=== PATIENT | male | born 2000 | race Hispanic/Latino ===

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

== ENCOUNTER 2023-04-11 22:30 | Emergency (ER) | payer MEDICAID ==
[~2023-04-11] VITALS: Ht 175.3 cm; Wt 66.0 kg
[~2023-04-11 22:30] MED LIST changes: +PHENERGAN25 MG/TAB PO
[2023-04-11 22:37] VITALS: BP 122/71
[2023-04-11 23:00] VITALS: BP 136/90
[2023-04-11 23:35] LABS: BASO% 0.3 % (0-3); EOS% 0.1 % (0-8); IMMATURE GRANULOCYTES 0.1 % (0.0-5.0); LYMPH% 9.8 % (15-41); MEAN CORPUSCULAR HGB 30.8 pG CALC (26.0-32.0); MEAN CORPUSCULAR HGB CONC 35.1 g/dL CAL (32.0-36.0); MONO% 11.9 % (2-13); NEUT# 8.21 thou/uL (1.82-7.42); NEUT% 77.8 % (42-76); RED BLOOD COUNT 5.06 mill/uL (4.70-6.10); RED CELL DISTRI WIDTH 12.9 % (11.5-15.5)
[2023-04-11 23:36] LABS: HEMATOCRIT 44.4 % (39.0-50.0); HEMOGLOBIN 15.6 g/dl (14.0-18.0); MEAN CELL VOLUME 87.7 fL CALC (80.0-100.0)
[2023-04-11 23:43] LABS: ALBUMIN 4.6 g/dL (3.2-5.0); ALKALINE PHOSPHATASE 91 u/l (38-126); ANION GAP 13 (6-22 (CALC)); BILIRUBIN, TOTAL 1.1 mg/dL (0.2-1.3); BUN 8 mg/dL (9-20); BUN/CREATININE RATIO 12 (12-20 (CALC)); CARBON DIOXIDE 28 mmol/l (22-30); CHLORIDE 98 mmol/l (95-108); CREATININE 0.7 mg/dL (0.7-1.3); GFR FOR AFR.AMER. > 60 ML/MIN (>=60 (CALC)); GFR OTHER RACES > 60 ML/MIN (>=60 (CALC)); LIPASE 42 u/l (23-300); POTASSIUM 3.6 mmol/l (3.5-5.1); SGOT/AST 28 u/l (17-59); SODIUM 135 mmol/l (137-146); TOTAL PROTEIN 8.1 g/dL (6.3-8.2)
[2023-04-12 02:00] VITALS: BP 136/90
[2023-04-12 02:41] LABS: URINE BILIRUBIN - DIPSTICK Negative (NEGATIVE); URINE BLOOD DIPSTICK Negative (NEGATIVE); URINE GLUCOSE - DIPSTICK Negative (NEGATIVE); URINE KETONE Negative (NEGATIVE); URINE LEUK ESTERASE Negative (NEGATIVE); URINE NITRITE - DIPSTICK Negative (Negative); URINE PROTEIN - DIPSTICK Negative (NEG-TRACE); URINE SPECIFIC GRAVITY 1.015
[2023-04-12 02:45] LABS: URINE COLOR Yellow
== END 2023-04-12 02:32 | disposition home or self-care (01) ==
LOC: ED 22:30
PROVIDERS: Family Medicine
DX: U07.1 COVID-19 (principal); R10.13 Epigastric pain; R51.9 Headache, unspecified; K59.00 Constipation, unspecified; R62.50 Unspecified lack of expected normal physiological development in childhood